=== PATIENT | female | born 1935 | race Caucasian/White ===

== ENCOUNTER 2016-12-07 11:35 | Day surgery (SDC) | payer MEDICARE ==
[~2016-12-07 11:35] MED LIST: CALCIUM 600 +1 EA21 PO; CIPRO500 M2 PO; CPAP; CRANBERRY500 M3 PO; CVS OMEGA-3 KR1 EAC1 PO; FISH OIL 1,0001 EAC8 PO; GLUCOSAMINE &1 EAC1 PO; MAGNESIUM250 M2 PO; MAXZIDE 37.5 M1 EAC1 PO; MEDS; MOBIC7.5 M2 PO; NORCO 5-325 TA1 EACH PO; ONE DAILY1 EAC4 PO; PHOSPHATIDYL SERINE PO; PRINIVIL20 M1 PO; PROBIOTIC1 EAC9 PO; PROZAC20 M3 PO; ST. JOHN'S WOR300 M2 PO; STRONTIUM CITRATE PO; SYNTHROID112 MC1 PO; TYLENOL EXTRA500 M1 PO; ULTRAM50 M1 PO; VITAMIN D31000 UNI3 PO; VITAMIN E1000 UNI5 PO; [UNRECOGNIZED DRUG - CODE] PO
[2016-12-07 13:02] LABS: BASO % 0.4 % (0-2); EOS % 2.4 % (0-7); EOSINOPHIL ABSOLUTE COUNT 0.2 tho/cmm (0.0-0.7); HGB-HEMOGLOBIN 15.1 gm/dl (12.0-15.5); LYMPH % 25.9 % (20-45); LYMPH ABSOLUTE COUNT 2.5 tho/cmm (0.8-4.5); MCH (MEAN CORPUSCULAR HGB) 28.7 pg (28.0-32.0); MCHC MEAN CORPUSCULAR HGB CONC 32.8 % (32.0-36.0); MCV (MEAN CELL VOLUME) 87.5 fl (82.0-96.0); MEAN PLATELET VOLUME 9.5 cmc (9.4-12.4); MONO % 10.2 % (0-12); NEUTROPHIL ABSOLUTE COUNT 5.9 tho/cmm (1.6-8.0); NEUTROPHIL-AUTOMATED 5.9 tho/cmm (1.6-8.0); NEUTROPHILS % 61.1 % (40-80); PLATELET COUNT 259 tho/cmm (150-450); RED BLOOD COUNT 5.26 mil/cmm (4.00-5.20); WHITE BLOOD COUNT 9.7 tho/cmm (4.0-10.0)
[2016-12-07 13:12] LABS: ALBUMIN 3.6 g/dl (3.5-5.0); ALKALINE PHOSPHATASE 72 U/L (33-138); ALT/SGPT 25 U/L (12-78); ANION GAP 13 mmol/L (0-20); AST/SGOT 23 U/L (10-40); BILIRUBIN,TOTAL 0.5 mg/dl (0-1.5); BLOOD UREA NITROGEN 22 mg/dl (6-24); CALCIUM 9.8 mg/dl (8.5-10.5); CARBON DIOXIDE-VENOUS 26 mmol/L (22-32); CHLORIDE 108 mmol/l (96-110); CREATININE 1.03 mg/dl (0.50-1.10); GLUCOSE 104 mg/dL (70-110); POTASSIUM 3.9 mmol/L (3.7-5.1); SODIUM 143 mmol/L (135-145); eGFR VALUE FOR BLACK 59 mL/Min
[2016-12-08] MEDS ORDERED: LEVAQUIN500 M1 PO (14:48)
[2016-12-08] MEDS ORDERED: FLAGYL500 M1 PO (14:50)
== END 2016-12-08 15:45 ==
LOC: SHSC 11:35 → ORW 13:27 → PACU 15:05 → OBGF 16:15
PROVIDERS: Obstetrics & Gynecology
PROC: 0DBW4ZX Excision of Peritoneum, Percutaneous Endoscopic Approach, Diagnostic (ICD-10-PCS; principal; 2016-12-07)
DX: K65.9 Peritonitis, unspecified (principal); N85.00 Endometrial hyperplasia, unspecified; I10 Essential (primary) hypertension; E66.01 Morbid (severe) obesity due to excess calories; M19.049 Primary osteoarthritis, unspecified hand; E03.9 Hypothyroidism, unspecified; F41.9 Anxiety disorder, unspecified; F32.9 Major depressive disorder, single episode, unspecified; G47.33 Obstructive sleep apnea (adult) (pediatric); K21.9 Gastro-esophageal reflux disease without esophagitis; K44.9 Diaphragmatic hernia without obstruction or gangrene; M81.0 Age-related osteoporosis without current pathological fracture; Z68.38 Body mass index [BMI] 38.0-38.9, adult; Z79.1 Long term (current) use of non-steroidal anti-inflammatories (NSAID); Z79.899 Other long term (current) drug therapy; Z88.2 Allergy status to sulfonamides; Z88.5 Allergy status to narcotic agent; Z86.010 Personal history of colon polyps; Z80.0 Family history of malignant neoplasm of digestive organs; Z82.49 Family history of ischemic heart disease and other diseases of the circulatory system; Z90.722 Acquired absence of ovaries, bilateral; Z90.89 Acquired absence of other organs; Z96.651 Presence of right artificial knee joint; Z98.890 Other specified postprocedural states
CPT/HCPCS: J0690; J3010; J7030; J7121; Q9967